=== PATIENT | female | born 1990 | race Caucasian/White ===

== ENCOUNTER 2020-01-26 08:54 | Emergency (ER) | payer MEDICAID ==
[~2020-01-26] VITALS: Ht 160 cm; Wt 54.0 kg
[2020-01-26] MEDS ORDERED: ONDANSETRON 4MG ODT PO ONE (10:30)
[2020-01-26] MEDS ORDERED: ONDANSETRON HCL 4MG/2ML INJ IV STA ×2 (10:37→13:41)
[2020-01-26] MEDS ORDERED: SODIUM CHLORIDE 0.9% 1,000 ML IV ONE ×2 (10:37→13:41)
[2020-01-26 11:00] LABS: BASOPHILS % 0.8 % (0.0-2.0); EOSINOPHILS % 0.1 % (0.0-5.0); HEMATOCRIT. 41.9 % (36.0-48.0); HEMOGLOBIN. 13.8 g/dL (12.0-16.0); MEAN CORPUSCULAR HEMOGLOBIN 27.7 pg (28.0-32.0); MEAN CORPUSCULAR VOLUME 84.1 fL (81.0-99.0); MEAN PLATELET VOLUME 10.7 fl (7.4-10.4); MONOCYTES % 2.5 % (2.0-8.0); NEUTROPHILS % 87.6 % (40.0-76.0); PLATELET 249 x1000/uL (130-400); RED BLOOD CELL COUNT 4.98 mill/uL (4.2-5.4); RED CELL DISTRIBUTION WIDTH 14.5 % (11.6-14.6)
[2020-01-26 11:03] LABS: CHLORIDE 109 mEq/L (98-107)
[2020-01-26 11:34] LABS: HCG SCREEN NEGATIVE
[2020-01-26 12:50] LABS: CLARITY URINE CLEAR (CLEAR); COLOR URINE YELLOW (YELLOW); KETONES URINE 4+ (NEGATIVE); LEUKOCYTE ESTERASE URINE NEGATIVE (NEGATIVE); NITRITE URINE NEGATIVE (NEGATIVE); OCCULT BLOOD URINE 3+ (NEGATIVE); PH URINE 5.5 (4.5-8.0); PROTEIN URINE TRACE (NEGATIVE); SPECIFIC GRAVITY URINE 1.026 (1.005-1.030); UROBILINOGEN URINE 0.2 E.U./dL (0.2-1.0)
[2020-01-26] MEDS ORDERED: LORAZEPAM 2MG/ML CPJ IV ONE (13:45)
[2020-01-26 15:23] LABS: *AMPHETAMINES SCREEN URINE NEGATIVE (NEGATIVE); *BARBITURATES SCREEN URINE NEGATIVE (NEGATIVE); *BENZODIAZEPINES SCREEN URINE NEGATIVE (NEGATIVE); *COCAINE SCREEN URINE NEGATIVE (NEGATIVE); METHADONE URINE SCREEN NEGATIVE (NEGATIVE); OPIATES URINE SCREEN NEGATIVE (NEGATIVE)
[2020-01-26 15:24] LABS: CANNABINOID URINE SCREEN PRESUMTIVE POSITIVE (NEGATIVE); PHENCYCLIDINE URINE SCREEN NEGATIVE (NEGATIVE)
[2020-01-26 16:11] VITALS: BP 134/72
== END 2020-01-26 16:12 | disposition home or self-care (01) ==
LOC: ER 09:04
DX: R10.9 Unspecified abdominal pain (principal); R73.9 Hyperglycemia, unspecified; R11.2 Nausea with vomiting, unspecified
CPT/HCPCS: 36415; 71045; 74176; 80053; 80305; 81003; 84703; 85025; 96361; 96374; 96375; 96376; 99285; J2060; J2405; J7030

== ENCOUNTER 2022-11-18 07:37 | Emergency (ER) | payer MEDICAID ==
[~2022-11-18] VITALS: Ht 154.9 cm; Wt 59.1 kg
[2022-11-18 07:46] VITALS: O2SAT 100
[2022-11-18 08:10] LABS: HEMATOCRIT. 44.6 % (36.0-48.0); HEMOGLOBIN. 14.9 g/dL (12.0-16.0); MEAN CORPUSCULAR HEMOGLOBIN 28.7 pg (28.0-32.0); MEAN PLATELET VOLUME 9.7 fl (7.4-10.4); PLATELET 264 x1000/uL (130-400); RED BLOOD CELL COUNT 5.19 mill/uL (4.2-5.4); RED CELL DISTRIBUTION WIDTH 14.1 % (11.6-14.6)
[2022-11-18 08:17] LABS: CHLORIDE 107 mEq/L (98-107)
[2022-11-18 08:46] LABS: PLATELET ESTIMATE NORMAL
[2022-11-18] MEDS ORDERED: ONDANSETRON HCL 4MG/2ML INJ IV ONE (11:30)
[2022-11-18] MEDS ORDERED: SODIUM CHLORIDE 0.9% 1,000 ML IV ONE ×2 (11:30→16:00)
[2022-11-18 12:56] LABS: HCG SCREEN NEGATIVE
[2022-11-18] MEDS ORDERED: KETOROLAC 15MG/ML VIAL IV NR (13:30)
[2022-11-18] MEDS ORDERED: PANTOPRAZOLE SODIUM 40 MG/VIAL IV ONE (14:00)
[2022-11-18] MEDS ORDERED: MAGNESIUM/ALUMINUM HYDROXIDE/SIMETHICONE 30ML UDC PO ONE (14:00)
[2022-11-18] MEDS ORDERED: PANTOPRAZOLE SODIUM 40 MG/VIAL IV NR (15:45)
[2022-11-18] MEDS ORDERED: ONDANSETRON HCL 4MG/2ML INJ IV NR (16:00)
[2022-11-18] MEDS ORDERED: PROT40 MT (17:34)
[2022-11-18] MEDS ORDERED: ONDA4TAB50 MT (17:34)
[2022-11-18] MEDS ORDERED: MAG-55 MT (17:34)
[2022-11-18 19:41] VITALS: BP 105/49; PULSE 71; RESP 22; TEMP 98.4
== END 2022-11-18 19:44 | disposition home or self-care (01) ==
LOC: ER 07:37
DX: R10.11 Right upper quadrant pain (principal); R10.13 Epigastric pain; E87.20 Acidosis, unspecified; R11.2 Nausea with vomiting, unspecified; Z00.00 Encounter for general adult medical examination without abnormal findings; Z90.49 Acquired absence of other specified parts of digestive tract; Z98.890 Other specified postprocedural states
CPT/HCPCS: 80053; 80320; 84703; 83605; 83690; 85025; 36415; 74176; 76700; 93005; 96361; 96374; 96375; 99285; J1885; J2405; C9113; Z7610 ×3; C1893; G0480